=== PATIENT | male | born 1990 | race Two or more races ===

== ENCOUNTER 2016-11-26 10:56 | Emergency (ER) | payer OTHER ==
[~2016-11-26] VITALS: Ht 167.6 cm; Wt 115.7 kg
[2016-11-26] MEDS ORDERED: HYDROmorphone 2 MG/ML VIAL IV PRN (11:45)
[2016-11-26 11:47] LABS: BILIRUBIN,URINE NEGATIVE (NEG); GLUCOSE,URINE NEGATIVE (NEG); NITRITE,URINE NEGATIVE (NEG); PROTEIN,URINE NEGATIVE (NEG-TRACE); UROBILINOGEN,URINE 0.2 mg/dL (0.2 mg/dL)
[2016-11-26 11:53] LABS: BACTERIA,URINE FEW /HPF (0-FEW); RBC,URINE >40 /HPF (0-2); SQUAMOUS EPITHELIAL CELL,UR OCC /LPF; WBC,URINE OCC /HPF (0-4)
[2016-11-26] MEDS ORDERED: IV NORMAL SALINE 500ML BAG 500 ML IV ONE (12:00)
[2016-11-26] MEDS ORDERED: ONDANSETRON PF 4 MG/2 ML VIAL. IV ONE (12:00)
--- NOTE | 2016-11-26 12:56 | RAD ---
Ultrasound scrotum 11/26/2016 Clinical indication: Left testicular pain. Comparison: None. Findings: Right testis is homogeneous in echotexture measuring 4.6 x 2.3 x 2.9 cm with normal intratesticular blood flow. There is a small posterior intratesticular benign cyst measuring 0.6 x 0.5 x 0.6 cm. Color and pulse spectral Doppler imaging of the right testis is normal with arterial and venous waveforms. Right epididymis is normal in appearance with a tiny epididymal head cyst measuring 0.4 cm. There is a trace right hydrocele. Left testis measures 4.8 x 2.1 x 3.0 cm with homogeneous echotexture. Color and pulsed spectral Doppler imaging of the left testis demonstrate arterial and venous waveforms. Left epididymis is normal in appearance. Impression: 1. No testicular torsion or epididymoorchitis. 2. Trace right hydrocele and tiny right spermatocele.
[2016-11-26 13:19] VITALS: BP 124/61
[2016-11-26] MEDS ORDERED: HYDR-2758 PO (13:28)
--- NOTE | 2016-11-26 13:28 | PHYS DOC ---
Past Medical History Past Medical History: Other Additional Past Medical Histor: gall stones; inguinal hernia Past Surgical History: Cholecystectomy, Other Additional Past Surgical Histo: ORIF right arm; inguinal hernia Alcohol Use: Occasionally Drug Use: Marijuana Adult General Chief Complaint Chief Complaint: TESTICULAR PAIN OR INJURY HPI HPI 26-year-old male presenting to the emergency department today with left testicular pain that started around 8:00. It is a sharp shooting pain. He denies swelling or redness of the testicle. He does report he goes to the lower back. He denies any recent injury. He reports he woke up with the pain. He denies recent intercourse. Review of systems is negative for chest pain shortness of breath abdominal pain nausea vomiting fevers or chills. All other review of systems is negative unless otherwise noted in history of present illness. ED course: 26-year-old male presenting to the emergency department today with left testicular pain. No obvious redness or swelling seen on the examination. Ultrasound ordered and obtained which was unremarkable for any evidence of torsion. The patient was feeling better after IV opioid medications. On reexamination he was feeling better and subsequent discharged home. The patient was then discharged home in stable condition to follow up with their primary care physician over the next 2-3 days. They were to return if their symptoms worsened or if they were concerned for any reason. [id number] discharge instructions and return precautions were given. Patient's questions were answered to their satisfaction. Patient is comfortable plan. Review of Systems Review of Systems SEE ABOVE. Current Medications Current Medications Current Medications Medications (Trade) Dose Ordered Sig/[facility] Start Time Stop Time Status Last Admin Dose Admin Hydromorphone HCl (Dilaudid) 0.5 mg PRN Q30MIN PRN 11/26/16 11:45 11/26/16 14:00 DC 11/26/16 12:05 0.5 MG Ondansetron HCl (Zofran) 4 mg 1X ONCE 11/26/16 12:00 11/26/16 12:01 DC 11/26/16 12:05 4 MG Sodium Chloride 500 ml @ 500 mls/hr 1X ONCE 11/26/16 12:00 11/26/16 12:59 DC 11/26/16 12:04 500 MLS/HR Allergies Allergies Allergies Uncoded Allergies Type Severity Reaction Last Updated Verified ELECTRICAL TAPE Allergy Severe angioedema 07/19/13 Physical Exam Physical Exam SEE ABOVE Constitutional: Well developed, well nourished, no acute distress, non-toxic appearance. [] HENT: Normocephalic, atraumatic, bilateral external ears normal, oropharynx moist, no oral exudates, nose normal. Eyes: PERRLA, EOMI, conjunctiva normal, no discharge. [] Neck: Normal range of motion, no tenderness, supple, no stridor. Cardiovascular:Heart rate regular rhythm, no murmur [] Lungs & Thorax: Bilateral breath sounds clear to auscultation Abdomen: Bowel sounds normal, soft, no tenderness, no masses, no pulsatile masses. exam: Penis and testicles are normal. The left testicle is not swollen. It is in normal anatomic position. Negative blue dot sign. It has a vertical lie and there is a cremasteric reflex intact. Skin: Warm, dry, no erythema, no rash. [] Back: No tenderness, no CVA tenderness. [] Extremities: No tenderness, no cyanosis, no clubbing, ROM intact, no edema. [] Neurologic: Alert and oriented X 3, normal motor function, normal sensory function, no focal deficits noted. Psychologic: Affect normal, judgement normal, mood normal. [] Current Patient Data Vital Signs Vital Signs Date Time Temp Pulse Resp B/P (MAP) Pulse Ox O2 Delivery O2 Flow Rate FiO2 11/26/16 12:05 18 98 Room Air 11/26/16 11:00 97.9 97 156/78 (104) 97.9 Lab Values Laboratory Tests Test 11/26/16 11:05 Urine Collection Type Unknown Urine Color Yellow Urine Clarity Clear Urine pH 6.0 Urine Specific [place] 1.025 Urine Protein Negative mg/dL (NEG-TRACE) Urine Glucose (UA) Negative mg/dL (NEG) Urine Ketones (Stick) Negative mg/dL (NEG) Urine Blood Large (NEG) Urine Nitrite Negative (NEG) Urine Bilirubin Negative (NEG) Urine Urobilinogen Dipstick 0.2 mg/dL (0.2 mg/dL) Urine Leukocyte Esterase Negative (NEG) Urine RBC >40 /HPF (0-2) Urine WBC Occ /HPF (0-4) Urine Squamous Epithelial Cells Occ /LPF Urine Bacteria Few /HPF (0-FEW) EKG EKG [] Radiology/Procedures Radiology/Procedures [] Course & Med Decision Making Course & Med Decision Making Pertinent Labs and Imaging studies reviewed. (See chart for details) [] Dragon Disclaimer Dragon Disclaimer This electronic medical record was generated, in whole or in part, using a voice recognition dictation system. Departure Departure Impression: Primary Impression: Testicular pain, left Disposition: 01 HOME, SELF-CARE Condition: STABLE Referrals: NO PCP (PCP) ESSIE TREVIÑO MD Patient Instructions: Hematuria, Adult Additional Instructions: Thank you for allowing us to participate in your care today. Followup with your primary care physician in 3 days if your symptoms do not improve. Call your Primary Doctor tomorrow and inform them of your visit today. If you do not have a primary care provider you can ask for a list of our primary care providers. Return to the emergency department you have any new or concerning findings. This should be evaluated by the primary care physician and any necessary consulting services for continued management within a few days after discharge. Return to emergency room if you have any new or concerning symptoms including but not limited to fever, chills, nausea, vomiting, intractable pain, any new rashes, chest pain, shortness of air, uncontrolled bleeding, difficulty breathing, and/or vision loss. You may have been prescribed medication that can change in your level of thinking and ability to operate machinery. These medications include hydrocodone and Ativan. Also, Benadryl has been known to do this as well. Be sure to check with your pharmacist and ask if the medications you've prescribed can affect your level of consciousness. I recommend not operating heavy machinery or driving while on medication such as these. Scripts Hydrocodone Bit/Acetaminophen (HYDROCODONE-APAP 5-325 ) 1 Each Tablet 1 TAB PO PRN Q6HRS Y for PAIN, #15 TAB 0 Refills Be careful as this medication may cause you to be drowsy or tired. Do not drive on this medication. Prov: YAA DUPREE MD 11/26/16 YAA DUPREE MD Nov 26, 2016 13:28
== END 2016-11-26 13:41 | disposition home or self-care (01) ==
LOC: ER 10:56
DX: N50.812 Left testicular pain (principal); M54.5 Low back pain; F12.10 Cannabis abuse, uncomplicated; Z90.49 Acquired absence of other specified parts of digestive tract; Z91.048 Other nonmedicinal substance allergy status
CPT/HCPCS: 76870; 81001; 96361; 96374; 96375; 99285; J1170; J2405; J7040